=== PATIENT | male | born 1965 | race Caucasian/White ===

== ENCOUNTER 2020-10-31 15:04 | Outpatient (CLI) | payer OTHER, SELFPAY | END 2020-10-31 15:05 | disposition home or self-care (01) | PROVIDERS: PCP Nurse Practitioner; Visit Provider Student in an Organized Health Care Education/Training Program | DX: J44.9 Chronic obstructive pulmonary disease, unspecified (principal) | CPT/HCPCS: 94762 ==

== ENCOUNTER 2020-11-10 13:15 | Emergency (ER) | payer OTHER, SELFPAY ==
[2020-11-10] VITALS (44 sets, daily range): BP systolic 87–114; BP diastolic 36–92; PULSE 60–80; RESP 5–22; TEMP 36.1; O2SAT 95–100
--- NOTE | 2020-11-10 13:15 | RT.EKG_ITS ---
APPROVED REPORT Exam: Resting ECG Reason for Exam: SOB Patient Location: E HR:77 bpm ECG Measurements Heart Rate 77 AXIS MN 138 P 59 QRSd 91 QRS 40 QT 371 T 71 QTc 421 Conclusion Sinus rhythm...normal P axis, V-rate 60- 99
--- NOTE | 2020-11-10 13:24 | ED.GENADUL_ITS ---
Discharge Plan Disposition Patient Disposition: HOME Condition: Stable Discharge Details Clinical Impression: Pneumonia, Acute exacerbation of chronic obstructive pulmonary disease Primary Care Provider: Mayda Hinojosa ED Provider: Savannah Ellis Home Meds and New Rx's Prescriptions: New amoxicillin-pot clavulanate [Augmentin] 875-125 mg tablet 1 tab PO BID 7 Days Qty: 14 RF: 0 doxycycline hyclate 100 mg tablet 100 mg PO BID 7 Days Qty: 14 RF: 0 prednisone 20 mg tablet See Rx Instructions .ROUTE .COMPLEX Qty: 18 RF: 0 Continued Children's Flonase Sensimist 27.5 mcg/actuation spray,suspension 2 spray intranasal DAILY RF: 0 diphenhydramine HCl [Allergy Relief(diphenhydramin)] 25 mg tablet 25 mg PO BID RF: 0 cetirizine [Zyrtec] 10 mg tablet 10 mg PO DAILY RF: 0 citalopram 10 mg tablet 30 mg PO DAILY RF: 0 hydroxyzine HCl 50 mg tablet 50 mg PO TID RF: 0 gabapentin 100 mg capsule 200 mg PO TID PRNRF: 0 melatonin 3 mg capsule 6 mg PO HS RF: 0 buspirone 10 mg tablet 10 mg PO BID RF: 0 aripiprazole [Abilify] 5 mg tablet 5 mg PO DAILY RF: 0 cyclobenzaprine 5 mg tablet 5 mg PO QHS PRNRF: 0 nicotine (polacrilex) 2 mg lozenge 2 mg buccal Q4H PRNRF: 0 metoprolol tartrate 50 mg tablet 50 mg PO DAILY RF: 0 Trelegy Ellipta 100-62.5-25 mcg blister with device 1 inh inhalation DAILY RF: 0 albuterol sulfate [ProAir HFA] 90 mcg/actuation HFA aerosol inhaler 2 puff inhalation 6XD RF: 0 Daliresp 500 mcg tablet 500 mcg PO DAILY RF: 0 albuterol sulfate 2.5 mg /3 mL (0.083 %) solution for nebulization 2.5 mg inhalation .COMPLEX PRN (Reason: shortness of breath or wheezing) RF: 0 guaifenesin 1,200 mg tablet extended release 12hr 1,200 mg PO BID RF: 0 sumatriptan succinate 25 mg tablet See Rx Instructions PO .COMPLEX RF: 0 Discharge Instructions Instructions: COPD (Chronic Obstructive Pulmonary Disease) (ED), Pneumonia (ED) Additional Instructions: Your CT scan noted what appears to be a pneumonia in your right lung. Your symptoms may likely be due to a combination of an exacerbation of your COPD and pneumonia. The remainder of your blood work and EKG today were reassuring. Prescriptions for steroids and two antibiotics were sent electronically to your pharmacy. Take them as directed until finished. Follow-up with your scheduled appointment with your primary care doctor next week. Return immediately to the emergency department if you develop any worsening or new concerning symptoms. Discharge Data Discharge Date/Time-TO BE ENTERED AT DEPARTURE: 11/10/20 18:00 Discharge Physician: Savannah Ellis Medical Decision Making <Jeffery Guevara MD - Last Filed: 11/10/20 14:33> 55 yo male with hx of chronic smoking down to 2-3 cigarettes a day per patient and known copd, who comes in with ems with shortness of breath. He is on chronic o2 6L and is on that now with oxygen saturations in the high 90's. He states he was walking at a home when he started to feel more short of breath so ems was called. He arrives stating he feels mildly improved without any treatment preshospital. Denies chest pain/pressure, fevers, chills, abdomen pain, n/v. He does have diffuse wheezing on exam bilaterally with no jvd or leg swelling or calf tenderness. Will treat for likely copd exacerbation with duoneb and solumedrol. No chest pain or pressure but will obtain ekg and troponin to evaluate for nstemi, heart score is 3. Given he has not had a CT or known evaluation for PE will obtain cta to evaluate for this and infiltrates labs show no significant abnormality, awaiting ct and does feel better after one neb, though still has wheezing, will order second neb pt signed out to oncoming provider pending ct results, delta troponin and reassessment Differential Diagnosis Differential Diagnosis: pneumonia, copd, pe, nstemi Medical Records Medical records reviewed: Yes I reviewed the patient's medical records. Lab Data Lab results reviewed: Yes I reviewed the patient's lab results. ECG Data Attestation: I personally reviewed and interpreted this ECG (s) as follows: Prior ECG tracings: not available for review Interpretation: sinus rhythm, rate of 77, no acute st t wave ischemic findings <Savannah Ellis DO - Last Filed: 11/12/20 22:39> 1500 --please see Dr. Guevara's note for initial presentation, exam and plan. Case endorsed to follow-up on labs and imaging with plan for delta troponin and final disposition. Patient assessed by me at bedside and feels much better after neb treatment. His vitals are within normal limits. His oxygen saturation is 98% on his normal 6 L. Reassessment of lung sounds with minimal right-sided wheezing but otherwise good air movement. He appears in no acute respiratory distress. He declined any additional neb treatments. CT chest notes: IMPRESSION: 1. No evidence of acute pulmonary emboli. No evidence of pulmonary infarction.No pleural effusions. 2. Severe bilateral emphysematous changes again noted, as evident on prior CT scan of October 2018. 3. There does appear to be some infiltrate in the posterior basal segment of the right lower lobe now evident. 1715 --repeat troponin negative. Repeat EKG unchanged. Patient admitted to a cough with yellow sputum for the past few weeks. Based on this history and CT chest findings, will cover with antibiotics for possible community-acquired pneumonia. He was given 1 dose of doxycycline and Augmentin here and prescriptions for these antibiotics and steroids sent electronically to his pharmacy. He states he has plenty of his inhalers at home. Patient has a follow-up appointment with his primary care doctor next week. Usual and customary return precautions given prior to discharge. Medical Records Medical records reviewed: Yes I reviewed the patient's medical records. Imaging Data Radiologic Study: Radiologist's impression: CT CHEST PE CTA CLINICAL HISTORY: difficulty breathing and hypoxia. TECHNIQUE: Imaging Protocol: CT angiography of the chest was performed using pulmonary embolus protocol. Multi planar reconstructions were performed. CONTRAST MATERIAL: Intravenous: Omnipaque 350 Contrast volume: 100 cc COMPARISON: CT CT CHEST WO CONTRAST from 10/30/2018 CR XR CHEST, 2 VIEWS from 12/17/2019 CR XR CHEST, 2 VIEWS from 12/17/2019 FINDINGS: CHEST: PULMONARY ARTERIES: There are no intraluminal filling defects to suggest acute pulmonary emboli. LUNGS: Very severe bilateral emphysematous changes are again noted throughout both lung alvarez with large confluent bullae again noted bilaterally, basically unchanged. There is no pneumothorax. No pleural effusions. There is some infiltrate evident in the posterior basal segment of the right lower lobe, more so than previous.. There are no pleural effusions. MEDIASTINUM: There is no hilar nor mediastinal adenopathy. Visualized thyroid unremarkable. CARDIAC: Heart size is upper normal. There is no pericardial effusion.Caliber of the thoracic aorta is within normal limits. There is no significant shift of the interventricular septum. PARTIALLY VISUALIZED UPPERMOST ABDOMEN: No obvious findings OSSEOUS: No significant osseous lesions.. IMPRESSION: 1. No evidence of acute pulmonary emboli. No evidence of pulmonary infarction.No pleural effusions. 2. Severe bilateral emphysematous changes again noted, as evident on prior CT scan of October 2018. 3. There does appear to be some infiltrate in the posterior basal segment of the right lower lobe now evident. Lab Data Lab results reviewed: Yes I reviewed the patient's lab results. Labs: Laboratory Tests Range/Units 11/10/20 11/10/20 11/10/20 13:30 13:30 13:55 WBC (4.4-10.8) 10^3/uL 7.89 RBC (4.36-5.78) 10^6/uL 3.99 L Hgb (13.5-17.5) g/dL 12.3 L Hct (40.0-50.0) % 39.3 L MCV (80-95) fL 98.5 H MCH (27.0-33.0) pg 30.8 MCHC (32.0-36.0) % 31.3 L RDW (11.8-14.1) % 13.2 Plt Count (130-400) 10^3/uL 253 MPV (8.0-11.0) fL 8.9 Immature Gran % 0.3 Neutrophils % 60.5 Lymphocytes % 29.9 Monocytes % 7.0 Eosinophils % 1.9 Basophils % 0.4 Nucleated RBC % % 0 Absolute Neutrophils (1.2-6.7) 10^3/uL 4.78 Absolute Lymphocytes (1.2-3.4) 10^3/uL 2.36 Absolute Monocytes (0.1-0.8) 10^3/uL 0.55 Absolute Eosinophils (0.0-0.7) 10^3/uL 0.15 Absolute Basophils (0.0-0.2) 10^3/uL 0.03 Sodium (136-145) mmol/L 141 Potassium (3.5-5.1) mmol/L 4.3 Chloride (98-107) mmol/L 100 Carbon Dioxide (21.0-32.0) mmol/L 42.2 H Anion Gap (3-11) mmol/L -1.2 L BUN (7-18) mg/dL 14 Creatinine (0.70-1.30) mg/dL 1.0 Estimated GFR/1.73 m2 (mL/min/1.73m2) >= 60.00 Glucose (74-106) mg/dL 132 H Calcium (8.5-10.1) mg/dL 8.9 Magnesium (1.8-2.4) mg/dL 2.0 Total Bilirubin (0.2-1.0) mg/dL 0.4 AST (15-37) U/L 15 ALT (16-63) U/L 22 Alkaline Phosphatase (46-116) U/L 91 Troponin I (<0.06) ng/mL < 0.05 Total Protein (6.4-8.2) g/dL 6.8 Albumin (3.4-5.0) g/dL 3.6 COVID-19 Source Nasal/Nares SARS-CoV-2 (PCR) (Negative) Negative Range/Units 11/10/20 16:40 WBC (4.4-10.8) 10^3/uL RBC (4.36-5.78) 10^6/uL Hgb (13.5-17.5) g/dL Hct (40.0-50.0) % MCV (80-95) fL MCH (27.0-33.0) pg MCHC (32.0-36.0) % RDW (11.8-14.1) % Plt Count (130-400) 10^3/uL MPV (8.0-11.0) fL Immature Gran % Neutrophils % Lymphocytes % Monocytes % Eosinophils % Basophils % Nucleated RBC % % Absolute Neutrophils (1.2-6.7) 10^3/uL Absolute Lymphocytes (1.2-3.4) 10^3/uL Absolute Monocytes (0.1-0.8) 10^3/uL Absolute Eosinophils (0.0-0.7) 10^3/uL Absolute Basophils (0.0-0.2) 10^3/uL Sodium (136-145) mmol/L Potassium (3.5-5.1) mmol/L Chloride (98-107) mmol/L Carbon Dioxide (21.0-32.0) mmol/L Anion Gap (3-11) mmol/L BUN (7-18) mg/dL Creatinine (0.70-1.30) mg/dL Estimated GFR/1.73 m2 (mL/min/1.73m2) Glucose (74-106) mg/dL Calcium (8.5-10.1) mg/dL Magnesium (1.8-2.4) mg/dL Total Bilirubin (0.2-1.0) mg/dL AST (15-37) U/L ALT (16-63) U/L Alkaline Phosphatase (46-116) U/L Troponin I (<0.06) ng/mL < 0.05 Total Protein (6.4-8.2) g/dL Albumin (3.4-5.0) g/dL COVID-19 Source SARS-CoV-2 (PCR) (Negative) ECG Data Attestation: I personally reviewed and interpreted this ECG (s) as follows: Interpretation: #1 -- rate of 77, sinus, no acute ST elevation or depression. MA 138. QTc 421. QRS 91. #2 -- rate of 63, sinus, no acute ST elevation or depression. MA 167. QTc 412. QRS 91. HPI <Jeffery Guevara MD - Last Filed: 11/10/20 14:33> General Mode of arrival: EMS . Date/Time Provider Initiated Documentation: 11/10/20 13:21 . Limitations to Documentation: no limitations . Information obtained by: patient . History of Present Illness 55 year old M presents to the emergency department with the chief complaint of shortness of breath, described as moderate, Patient started experiencing this hour(s) (1) and it has been intermittent. Rest improves symptom(s), Movement worsens symptoms . Patient notes cough. Patient did receive the following treatments prior to arrival, none Related Data Home Medications Medication Instructions Recorded Confirmed albuterol sulfate 2.5 mg INHALATION .COMPLEX PRN 10/27/20 11/10/20 albuterol sulfate 90 mcg/actuation 2 puff INHALATION 6XD 10/27/20 11/10/20 aerosol inhaler aripiprazole 5 mg tablet 5 mg PO DAILY 10/27/20 11/10/20 buspirone 10 mg tablet 10 mg PO BID 10/27/20 11/10/20 cetirizine 10 mg tablet 10 mg PO DAILY 10/27/20 11/10/20 citalopram 10 mg tablet 30 mg PO DAILY 10/27/20 11/10/20 cyclobenzaprine 5 mg tablet 5 mg PO QHS PRN 10/27/20 11/10/20 diphenhydramine HCl 25 mg tablet 25 mg PO BID tab 10/27/20 11/10/20 fluticasone fur. 100 mcg-umeclid 1 inh INHALATION DAILY 10/27/20 11/10/20 62.5 mcg-vilant 25 mcg inhalat.powder fluticasone furoate 27.5 2 spray INTRANASAL DAILY 10/27/20 11/10/20 mcg/actuation nasal spray,suspension gabapentin 100 mg capsule 200 mg PO TID PRN cap 10/27/20 11/10/20 guaifenesin 1,200 mg tablet, 1,200 mg PO BID 10/27/20 11/10/20 extended release 12 hr hydroxyzine HCl 50 mg tablet 50 mg PO TID 10/27/20 11/10/20 melatonin 3 mg capsule 6 mg PO HS cap 10/27/20 11/10/20 metoprolol tartrate 50 mg tablet 50 mg PO DAILY 10/27/20 11/10/20 nicotine (polacrilex) 2 mg buccal 2 mg BUCCAL Q4H PRN 10/27/20 11/10/20 lozenge roflumilast 500 mcg tablet 500 mcg PO DAILY 10/27/20 10/31/20 sumatriptan succinate 25 mg tablet See Rx Instructions PO .COMPLEX 10/27/20 11/10/20 amoxicillin-pot clavulanate 1 tab PO BID 7 Days #14 tab 11/10/20 [Augmentin] doxycycline hyclate 100 mg PO BID 7 Days #14 tab 11/10/20 prednisone See Rx Instructions .ROUTE 11/10/20 .COMPLEX #18 tab Previous Rx's Medication Instructions Recorded amoxicillin-pot clavulanate 1 tab PO BID 7 Days #14 tab 11/10/20 [Augmentin] doxycycline hyclate 100 mg PO BID 7 Days #14 tab 11/10/20 prednisone See Rx Instructions .ROUTE 11/10/20 .COMPLEX #18 tab Allergies Allergy/AdvReac Type Severity Reaction Status Date / Time naproxen [From Aleve] Allergy Severe Verified 11/10/20 13:25 Review of Systems <Jeffery Guevara MD - Last Filed: 11/10/20 14:33> All systems reviewed & are unremarkable except as noted in HPI and below Constitutional Constitutional: Denies chills and Denies fever(s) Cardiovascular Cardiovascular: Denies chest pain Gastrointestinal Gastrointestinal: Denies abdominal pain, Denies nausea and Denies vomiting Musculoskeletal Musculoskeletal: Denies joint swelling PFSH <Jeffery Guevara MD - Last Filed: 11/10/20 14:33> Medical History Anxiety and depression Diverticulosis Respiratory failure Stress-induced cardiomyopathy Family History Father , age 64 COPD (chronic obstructive pulmonary disease) Mother Dementia Sister Family history of cervical cancer 3 sisters with cervical cancer, and anal carcinoma. Obesity 2 sisters. Social History Smoking/Tobacco Use Status: Former Tobacco Use Quit Date: 03/28/18 Pack-years: 30 Smoking risk assessment performed?: Yes Alcohol Intake: never Drug use: Never Substance use type: does not use Current gender identity: male Do you feel safe at home: Yes Do you feel safe in your relationship?: Yes Exam <Jeffery Guevara MD - Last Filed: 11/10/20 14:33> Const General: no acute distress Orientation: alert HENLA Head: normal to inspection Ears: external ears normal General nose exam: external nose normal Mouth: moist mucous membranes Eyes General: appearance normal, both eyes and all related structures Neck Neck: normal visual inspection Resp Effort & Inspection: able to speak in complete sentences and no tracheal deviation Cardio Rate: regular rate GI Palpation: soft, not rigid and nontender Skin General skin exam: no rashes or lesions noted Neuro General: patient alert and patient oriented x3 Extrem General: normal to inspection Psych Mental Status: mental status grossly normal Sign Out <Jeffery Guevara MD - Last Filed: 11/10/20 14:33> Sign Out Data: Sign Out Comment: chronic smoking on home o2 for copd had increased shortness of breath earlier, improving with solumedrol and nebs. Pending chest ct and delta troponin and ecg Last updated by Jeffery Guevara MD at 11/10/20 14:15
[2020-11-10 13:45] LABS: Abs Immature Grans 0.02 10^3/uL (0.0-0.06); Absolute Basophil Count 0.03 10^3/uL (0.0-0.2); Absolute Eosinophil Count 0.15 10^3/uL (0.0-0.7); Absolute Lymphocyte Count 2.36 10^3/uL (1.2-3.4); Absolute Monocyte Count 0.55 10^3/uL (0.1-0.8); Absolute Neutrophil Count 4.78 10^3/uL (1.2-6.7); Basophils % 0.4; Eosinophils % 1.9; HCT 39.3 % (40.0-50.0); HGB 12.3 g/dL (13.5-17.5); Immature Grans % 0.3; Lymphocytes % 29.9; MCH 30.8 pg (27.0-33.0); MCHC 31.3 % (32.0-36.0); MCV 98.5 fL (80-95); MPV 8.9 fL (8.0-11.0); Neutrophils % 60.5; Nucleated RBC 0 %; Platelet Count 253 10^3/uL (130-400); RBC 3.99 10^6/uL (4.36-5.78); RDW 13.2 % (11.8-14.1); RDW-SD 47.7 fL; WBC 7.89 10^3/uL (4.4-10.8)
[2020-11-10] MEDS: methylPREDNISolone SUCC 125 MG VIAL IVP (13:57)
--- NOTE | 2020-11-10 14:00 | DI.CT_ITS ---
Exam(s) CT CHEST PE CTA EXAM: CT CHEST PE CTA CLINICAL HISTORY: difficulty breathing and hypoxia. TECHNIQUE: Imaging Protocol: CT angiography of the chest was performed using pulmonary embolus nagi col. Multi planar reconstructions were performed. CONTRAST MATERIAL: Intravenous: Omnipaque 350 Contrast volume: 100 cc COMPARISON: CT CT CHEST WO CONTRAST from 10/30/2018 CR XR CHEST, 2 VIEWS from 12/17/2019 CR XR CHEST, 2 VIEWS from 12/17/2019 FINDINGS: CHEST: PULMONARY ARTERIES: There are no intraluminal filling defects to suggest acute pulmonary emboli. LUNGS: Very severe bilateral emphysematous changes are again noted throughout both lung alvarez with l arge confluent bullae again noted bilaterally, basically unchanged. There is no pneumothorax. No pl eural effusions. There is some infiltrate evident in the posterior basal segment of the right lower lobe, more so than previous.. There are no pleural effusions. MEDIASTINUM: There is no hilar nor mediastinal adenopathy. Visualized thyroid unremarkable. CARDIAC: Heart size is upper normal. There is no pericardial effusion.Caliber of the thoracic aorta is within normal limits. There is no significant shift of the interventricular septum. PARTIALLY VISUALIZED UPPERMOST ABDOMEN: No obvious findings OSSEOUS: No significant osseous lesions.. IMPRESSION: 1. No evidence of acute pulmonary emboli. No evidence of pulmonary infarction.No pleural effusions. 2. Severe bilateral emphysematous changes again noted, as evident on prior CT scan of October 2018. 3. There does appear to be some infiltrate in the posterior basal segment of the right lower lobe now evident. RADIATION DOSE DELIVERED: 385.33mGy.cm Total DLP DATA REPOSITORY: All CT scans at this facility are submitted to the National Radiology Data Registry (NRDR) Dose Index Registry (DIR) with the [employer] ([employer]). RADIATION OPTIMIZATION: All CT scans at this facility use at least one of these dose optimization te chniques: automated exposure control; mA and/or kV adjustment per patient size (includes targeted exa ms where dose is matched to clinical indication); or iterative reconstruction.
[2020-11-10 14:01] LABS: ALT 22 U/L (16-63); AST 15 U/L (15-37); Albumin 3.6 g/dL (3.4-5.0); Alkaline Phosphatase 91 U/L (46-116); Anion Gap -1.2 mmol/L (3-11); BUN 14 mg/dL (7-18); Bilirubin, Total 0.4 mg/dL (0.2-1.0); CO2 42.2 mmol/L (21.0-32.0); Calcium 8.9 mg/dL (8.5-10.1); Chloride 100 mmol/L (98-107); Glucose 132 mg/dL (74-106); Potassium 4.3 mmol/L (3.5-5.1); Sodium 141 mmol/L (136-145); Total Protein 6.8 g/dL (6.4-8.2)
[2020-11-10 14:03] LABS: Troponin I < 0.05 ng/mL (<0.06)
[2020-11-10 14:13] LABS: Source Nasal/Nares
[2020-11-10 15:06] LABS: COVID-19 PCR Negative (Negative)
[2020-11-10] MEDS: Albuterol/Ipratropium 3 ML UPD VIAL UPD (15:07)
[2020-11-10] MEDS: Omnipaque 350 MG/ML 100 ML BTL IV (15:32)
--- NOTE | 2020-11-10 16:45 | RT.EKG_ITS ---
APPROVED REPORT Exam: Resting ECG Reason for Exam: chest pain Patient Location: E HR:63 bpm ECG Measurements Heart Rate 63 AXIS NE 167 P 72 QRSd 91 QRS 45 QT 402 T 68 QTc 412 Conclusion Sinus rhythm...normal P axis, V-rate 60- 99 Low voltage, precordial leads...precordial leads <1.0mV. No STEMI. I have reviewed and interpreted ECG and agree with software generated interpretation.
[2020-11-10] MEDS: Normal Saline 250 ML IV (16:47)
[2020-11-10 17:05] LABS: Troponin I < 0.05 ng/mL (<0.06)
[2020-11-10] MEDS: Amoxicillin 875/Clav. 125 TAB PO (17:34)
[2020-11-10] MEDS: Doxycycline Hyclate 100 MG CAP PO (17:34)
== END 2020-11-10 18:00 | disposition home or self-care (01) ==
PROVIDERS: Emergency Medicine; Emergency Provider Physician Assistant; PCP Nurse Practitioner
DX: J44.0 Chronic obstructive pulmonary disease with (acute) lower respiratory infection (principal); J18.8 Other pneumonia, unspecified organism; J44.1 Chronic obstructive pulmonary disease with (acute) exacerbation; F17.210 Nicotine dependence, cigarettes, uncomplicated; Z99.81 Dependence on supplemental oxygen; Z20.822 Contact with and (suspected) exposure to COVID-19; Z03.818 Encounter for observation for suspected exposure to other biological agents ruled out
CPT/HCPCS: 36415; 71275; 80053; 87635; 93005; 94640; 96361; 96374; 99285; 83735; 84484; 85025; 93010; J2930; J3490; J7620

== ENCOUNTER 2020-11-27 02:54 | Emergency (ER) | payer OTHER, SELFPAY ==
[2020-11-27] VITALS (10 sets, daily range): BP systolic 105–111; BP diastolic 73–90; PULSE 60–69; RESP 14–20; TEMP 36.5; O2SAT 96–100
--- NOTE | 2020-11-27 02:56 | ED.GENADUL_ITS ---
Discharge Plan Disposition Patient Disposition: HOME Condition: Good Discharge Details Clinical Impression: Cervical strain Primary Care Provider: Mayda Hinojosa ED Provider: Tima Almanza [place] Meds and New Rx's Prescriptions: Continued Children's Flonase Sensimist 27.5 mcg/actuation spray,suspension 2 spray intranasal DAILY PRNRF: 0 cetirizine [Zyrtec] 10 mg tablet 10 mg PO DAILY PRNRF: 0 citalopram 10 mg tablet 30 mg PO DAILY RF: 0 hydroxyzine HCl 50 mg tablet 50 mg PO TID PRNRF: 0 gabapentin 100 mg capsule 200 mg PO TID PRNRF: 0 melatonin 3 mg capsule 6 mg PO HS RF: 0 buspirone 10 mg tablet 10 mg PO BID RF: 0 aripiprazole [Abilify] 5 mg tablet 5 mg PO DAILY RF: 0 cyclobenzaprine 5 mg tablet 5 mg PO QHS PRNRF: 0 nicotine (polacrilex) 2 mg lozenge 2 mg buccal Q4H PRNRF: 0 metoprolol tartrate 50 mg tablet 50 mg PO DAILY RF: 0 Trelegy Ellipta 100-62.5-25 mcg blister with device 1 inh inhalation DAILY RF: 0 albuterol sulfate [ProAir HFA] 90 mcg/actuation HFA aerosol inhaler 2 puff inhalation 6XD PRNRF: 0 Daliresp 500 mcg tablet 500 mcg PO DAILY RF: 0 albuterol sulfate 2.5 mg /3 mL (0.083 %) solution for nebulization 2.5 mg inhalation .COMPLEX PRN (Reason: shortness of breath or wheezing) RF: 0 guaifenesin 1,200 mg tablet extended release 12hr 1,200 mg PO BID RF: 0 sumatriptan succinate 25 mg tablet See Rx Instructions PO .COMPLEX RF: 0 [id number]-heshrzvx-rktdsrbdj 20-300-200 mg Tablet 1 tab PO DAILY RF: 0 Discharge Instructions Instructions: Cervical Strain (ED) Additional Instructions: CT scans show no acute traumatic injury. You may use Tylenol and heat to help with neck discomfort. Follow up with PCP next week if not improving. Return to ED for any neurological changes, significantly worsening pain, other concerns. Referrals: Mayda Hinojosa [Primary Care Provider] - Medical Decision Making Patient here s/p fall out of bed with neck pain. He has no posterior tenderness but complains of posterior pain. Unclear LOC or not since he was sleeping. Will obtain head/c-spine CT. Scans are negative for any acute traumatic injury. Collar removed and patient able to range neck without significant discomfort. Given Tylenol which he may continue as needed for discomfort. Follow up with PCP next week if not improving. Return to ED for worsening pain, neurological changes, other concerns. HPI General Mode of arrival: EMS . Date/Time Provider Initiated Documentation: 11/27/20 02:56 . Limitations to Documentation: no limitations . Information obtained by: patient and RN notes reviewed . HPI Narrative: Patient presents to ED with neck pain after falling out of bed. Patient thinks he was dreaming and fell/jumped out of bed. He struck the dresser. He has posterior neck pain/upper back pain. He has no neurological changes. He denies CP or SOB> Unsure whether LOC or not since he was sleeping. EMS transported patient here in collar. Related Data Home Medications Medication Instructions Recorded Confirmed albuterol sulfate 2.5 mg INHALATION .COMPLEX PRN 10/27/20 11/27/20 albuterol sulfate 90 mcg/actuation 2 puff INHALATION 6XD PRN 10/27/20 11/27/20 aerosol inhaler aripiprazole 5 mg tablet 5 mg PO DAILY 10/27/20 11/27/20 buspirone 10 mg tablet 10 mg PO BID 10/27/20 11/27/20 cetirizine 10 mg tablet 10 mg PO DAILY PRN 10/27/20 11/27/20 citalopram 10 mg tablet 30 mg PO DAILY 10/27/20 11/27/20 cyclobenzaprine 5 mg tablet 5 mg PO QHS PRN 10/27/20 11/27/20 fluticasone fur. 100 mcg-umeclid 1 inh INHALATION DAILY 10/27/20 11/27/20 62.5 mcg-vilant 25 mcg inhalat.powder fluticasone furoate 27.5 2 spray INTRANASAL DAILY PRN 10/27/20 11/27/20 mcg/actuation nasal spray,suspension gabapentin 100 mg capsule 200 mg PO TID PRN cap 10/27/20 11/27/20 guaifenesin 1,200 mg tablet, 1,200 mg PO BID 10/27/20 11/27/20 extended release 12 hr hydroxyzine HCl 50 mg tablet 50 mg PO TID PRN 10/27/20 11/27/20 melatonin 3 mg capsule 6 mg PO HS cap 10/27/20 11/27/20 metoprolol tartrate 50 mg tablet 50 mg PO DAILY 10/27/20 11/27/20 nicotine (polacrilex) 2 mg buccal 2 mg BUCCAL Q4H PRN 10/27/20 11/27/20 lozenge roflumilast 500 mcg tablet 500 mcg PO DAILY 10/27/20 10/31/20 sumatriptan succinate 25 mg tablet See Rx Instructions PO .COMPLEX 10/27/20 11/27/20 [id number]-dckmaftd-uvwritpnl 1 tab PO DAILY 11/27/20 11/27/20 Allergies Allergy/AdvReac Type Severity Reaction Status Date / Time naproxen [From Aleve] Allergy Severe Verified 11/27/20 03:02 General ANTONI: 2 Review of Systems Narrative: As documented in HPI otherwise negative as below. Const: no fever, chills, weakness Resp: no cough, SOB, pleuritic pain CV: no CP, diaphoresis, edema, syncope GI: no abdominal pain, nausea, vomiting, diarrhea Neuro: no headache, numbness, focal weakness, confusion PFSH Medical History Anxiety and depression COPD (chronic obstructive pulmonary disease) Diverticulosis Respiratory failure Stress-induced cardiomyopathy Family History Father , age 64 COPD (chronic obstructive pulmonary disease) Mother Dementia Sister Family history of cervical cancer 3 sisters with cervical cancer, and anal carcinoma. Obesity 2 sisters. Social History Smoking/Tobacco Use Status: Current every day Tobacco Type: cigarettes Smoking risk assessment performed?: Yes Alcohol Intake: never Drug use: Never Substance use type: does not use Current gender identity: male Do you feel safe at home: Yes Do you feel safe in your relationship?: Yes Exam Narrative Exam Narrative: Const: WDWN male in NAD in cervical collar. HEENT: NC/AT. Normal facial exam. Neck: Trachea midline. No posterior midline tenderness. Lungs: Normal respiratory effort. Cor: RRR. Good radial pulses. Back: No midline tenderness. Neuro: A+O x 3. Normal speech, mentation, gait. Cranial nerves II - XII grossly intact. No gross motor or sensory deficit. Ext: No deformity or tenderness. Skin: Warm and dry without lacs.
--- NOTE | 2020-11-27 03:00 | DI.CT_ITS ---
Exam(s) CT HEAD CERVICAL SPINE WO EXAM: CT HEAD CERVICAL SPINE WO CLINICAL HISTORY: trauma. TECHNIQUE: Imaging Protocol: Axial computed tomography images with coronal and sagittal reformatted images were created and reviewed COMPARISON: No exams were available for comparison FINDINGS: Head CT Ventricles and Extra axial spaces: Normal in size and morphology for the patient's age. Hemorrhage: None. Cerebral parenchyma: Normal. Midline shift: None. Brainstem/Cerebellum: Normal. Calvarium: Normal. Visualized Paranasal sinuses/Mastoids: Clear. Cervical Spine CT BONES: Vertebral body heights are maintained. There is no evidence of acute fracture. Dextroscoliosi s. Degenerative disc changes and facet degenerative changes are seen . SOFT TISSUES: No paraspinal hematoma. The airway appears intact. No pneumothorax is seen at the lung apices. Emphysematous changes are noted. IMPRESSION: Head CT: No acute abnormality. C-spine CT: Degenerative changes, no acute abnormality. RADIATION DOSE DELIVERED: 1,454.51mGy.cm Total DLP DATA REPOSITORY: All CT scans at this facility are submitted to the National Radiology Data Registry (NRDR) Dose Index Registry (DIR) with the [employer] ([employer]). RADIATION OPTIMIZATION: All CT scans at this facility use at least one of these dose optimization te chniques: automated exposure control; mA and/or kV adjustment per patient size (includes targeted exa ms where dose is matched to clinical indication); or iterative reconstruction.
--- NOTE | 2020-11-27 03:41 | DI.VRAD_ITS ---
PROCEDURE INFORMATION: Exam: CT Head Without Contrast Exam date and time: 11/27/2020 3:07 AM Age: 55 years old Clinical indication: Injury or trauma; Blunt trauma (contusions or hematomas); Consciousness not specified; Injury date: 11/27/20; Injury details: Fall from bed, neck pain on right side, abrasion R forehead TECHNIQUE: Imaging protocol: Computed tomography of the head without contrast. Radiation optimization: All CT scans at this facility use at least one of these dose optimization techniques: automated exposure control; mA and/or kV adjustment per patient size (includes targeted exams where dose is matched to clinical indication); or iterative reconstruction. COMPARISON: No relevant prior studies available. FINDINGS: Generalized volume loss and periventricular white matter hypodensity consistent with chronic small vessel ischemic change. There is no evidence of intraparenchymal hemorrhage, mass effect or extra-axial collection. Ventricular size is concordant with degree of volume loss. Visualized intraorbital soft tissues are normal. Minimal mucosal thickening in the left maxillary sinus. IMPRESSION: No acute intracranial process. Chronic ischemic changes. PROCEDURE INFORMATION: Exam: CT Cervical Spine Without Contrast Exam date and time: 11/27/2020 3:07 AM Age: 55 years old Clinical indication: Injury or trauma; Blunt trauma (contusions or hematomas); Consciousness not specified; Injury date: 11/27/20; Injury details: Fall from bed, neck pain on right side, abrasion R forehead TECHNIQUE: Imaging protocol: Computed tomography images of the cervical spine without contrast. Radiation optimization: All CT scans at this facility use at least one of these dose optimization techniques: automated exposure control; mA and/or kV adjustment per patient size (includes targeted exams where dose is matched to clinical indication); or iterative reconstruction. COMPARISON: No relevant prior studies available. FINDINGS: There is 4 mm of C3 on C4 and C7 on T1 anterolisthesis due to spondylosis. No acute fracture. There is mild dextrocurvature of the upper thoracic spine. No acute fracture . Multilevel degenerative changes are noted. No critical canal stenosis. No evidence of prevertebral soft tissue swelling. Severe emphysema. IMPRESSION: 1. No evidence of fracture or dislocation. 2. Multilevel degenerative changes noted. Dictated and Authenticated by: Tiffany Spaulding MD. Ordering:MIROSLAVA Alfred MD
[2020-11-27] MEDS: Acetaminophen 500 MG TAB 1000 MG PO (03:50)
== END 2020-11-27 03:55 | disposition home or self-care (01) ==
LOC: ER 03:49
PROVIDERS: Emergency Provider Emergency Medicine; PCP Nurse Practitioner
DX: S16.1XXA Strain of muscle, fascia and tendon at neck level, initial encounter (principal); W06.XXXA Fall from bed, initial encounter
CPT/HCPCS: 99284; 70450; 72125